=== PATIENT | male | born 1990 | race Caucasian/White ===

== ENCOUNTER 2020-04-10 15:01 | Outpatient (CLI) | payer BC, SELFPAY ==
[2020-04-10 15:37] LABS: SARS-CoV-2 Ag Negative (Negative)
== END 2020-04-10 15:02 | disposition home or self-care (01) ==
LOC: CHSLAB 15:06
PROVIDERS: PCP Internal Medicine; Visit Provider Internal Medicine
DX: Z20.828 Contact with and (suspected) exposure to other viral communicable diseases (principal)
CPT/HCPCS: 87426

== ENCOUNTER 2021-04-29 14:47 | Outpatient (CLI) | payer BC, SELFPAY ==
[2021-04-29 17:49] LABS: SARS-CoV-2 Ag Negative (Negative)
[2021-04-29 17:50] LABS: Influenza Control Valid (Valid)
== END 2021-04-29 14:48 | disposition home or self-care (01) ==
LOC: CHSLAB 14:50
PROVIDERS: PCP Internal Medicine; Visit Provider Internal Medicine
DX: J06.9 Acute upper respiratory infection, unspecified (principal); Z20.822 Contact with and (suspected) exposure to COVID-19
CPT/HCPCS: 87081; 87426; 87804; 87880; C9803